=== PATIENT | male | born 1970 | race Two or more races ===

== ENCOUNTER 2017-09-09 06:29 | Inpatient (IN) | payer OTHER ==
[~2017-09-09] VITALS: Ht 172.7 cm; Wt 86.2 kg
[2017-09-09 08:08] LABS: BASOPHILS % 0.8 % (0.0-2.0); EOSINOPHILS % 1.4 % (0.0-5.0); HEMATOCRIT. 43.8 % (42.0-52.0); LYMPHOCYTES % 29.9 % (20.0-50.0); MEAN CORPUSCULAR HEMOGLOBIN 31.5 pg (28.0-32.0); MEAN CORPUSCULAR VOLUME 91.7 fL (80.0-94.0); MEAN PLATELET VOLUME 8.9 fl (7.4-10.4); MONOCYTES % 7.5 % (2.0-8.0); NEUTROPHILS % 60.4 % (40.0-76.0); PLATELET 183 x1000/uL (130-400); RED BLOOD CELL COUNT 4.78 mill/uL (4.7-6.1); RED CELL DISTRIBUTION WIDTH 13.2 % (11.6-14.6)
[2017-09-09 08:13] LABS: CHLORIDE 106 mEq/L (98-107); ETHANOL BLOOD < 10 mg/dL
[2017-09-09] MEDS ORDERED: SODIUM CHLORIDE 0.9% 1,000 ML IV ONE (08:24)
[2017-09-09] MEDS ORDERED: IOHEXOL-350 100 ML BOTTLE ONE (11:12)
[2017-09-09] MEDS ORDERED: AMLODIPINE 10MG TABLET PO SCH ×2 (11:30→17:00)
[2017-09-09 16:45] VITALS: BP 134/76
[2017-09-09 18:12] VITALS: BP 134/76
[2017-09-09 20:06] VITALS: BP 113/71
[2017-09-10 00:19] VITALS: BP 110/75
[2017-09-10 04:16] VITALS: BP 108/69
[2017-09-10 07:27] VITALS: BP 111/75
[2017-09-10 11:37] VITALS: BP 113/65
[2017-09-10 15:42] VITALS: BP 113/65
== END 2017-09-10 17:51 | disposition home or self-care (01) | DRG 123 ==
LOC: ER 07:36 → 6WST 10:46 → ENRESERV 15:32
PROVIDERS: ADMIT Internal Medicine; ATTEND Internal Medicine
DX: H49.00 Third [oculomotor] nerve palsy, unspecified eye (principal); E11.9 Type 2 diabetes mellitus without complications; H02.402 Unspecified ptosis of left eyelid; H53.8 Other visual disturbances; H53.2 Diplopia; Z82.49 Family history of ischemic heart disease and other diseases of the circulatory system
CPT/HCPCS: 36415; 70496; 70498; 70551; 80053; 83036; 85025; 85610; 93005; 96360; 96361; 99285; G0482; Q9967